=== PATIENT | male | born 1950 | race Caucasian/White ===

== ENCOUNTER 2020-08-07 06:56 | Observation (INO) ==
--- NOTE | 2020-06-30 12:05 | PAT Medication Instructions ---
Medication Instructions Date of Service June 30, 2020 Home Medications omeprazole 20 mg capsule,delayed release 20 mg PO QAM atorvastatin 10 mg PO HS lisinopril 20 mg PO QAM DO NOT take the morning of surgery lisinopril 20 mg PO QAM Take morning of surgery With a small sip of water, OTHERWISE NOTHING TO EAT OR DRINK AFTER MIDNIGHT: omeprazole 20 mg capsule,delayed release 20 mg PO QAM Take evening before surgery atorvastatin 10 mg PO HS Other Notes If you have any questions please call us at [phone] or [phone] or [phone] or [phone]
--- NOTE | 2020-07-05 09:08 | Anesthesiology Consultation ---
Date of Service July 05, 2020 Assessment & Plan (1) Encounter for pre-operative examination: Per assessment on 07/05: Travel screen- Lives in [facility]. Travel to [facility]. No known COVID-19 positive contacts or current COVID-19 related symptoms. Surgeon arranging preop COVID testing. Awaiting results. Chart Review Chart Review: Acceptable Risk for Surgery and Patient seen in Pre Admission Testing Teaching & Discussion Pre-Anesthesia Teaching/Discussion Notes: Instructed NPO after midnight before surgery,except medications with 15 cc of water. Medication instructions provided according to the PAT guidelines. History Surgery Operation Date: 08/07/20 07:30 Proposed Procedures p Right Total Knee Arthroplasty - Kristopher Moore MD Height/Weight Height: 5 ft 10 in Weight: 83 kg Allergies Allergy/AdvReac Type Severity Reaction Status Date / Time No Known Allergies Allergy Verified 06/27/20 15:20 Medications Home Medications Medication Instructions Recorded Confirmed Last Taken omeprazole 20 mg capsule,delayed 20 mg PO QAM 06/05/20 06/27/20 Unknown release atorvastatin 10 mg PO QAM 06/27/20 07/05/20 Unknown lisinopril 20 mg PO HS 06/27/20 07/05/20 Unknown Past Medical History Medical History Bilateral primary osteoarthritis of knee Elbow fracture closed reduction casted () GERD (gastroesophageal reflux disease) controlled Hyperlipemia Hypertension Exercise / Class Metabolic Activity II 4-5 Yardwork/Stairs/Walk up hill Past Surgical History Surgical History Hx of arthroscopy of left knee Hx of arthroscopy of right knee Hx of colonoscopy Past Anesthesia History No Hx of Anesthesia Complications and No Family Hx of Anesthesia Complications History of PONV No Hx of PONV and No Hx of Motion Sickness Social History Smoking Status: Never smoker Do You Dip or Chew Tobacco: No (quit) Hx Alcohol Use: Yes Alcohol type: beer alcohol intake frequency: holidays/special occasions only Hx Substance Use: No Review of Systems Patient denies chest pain, shortness of breath, dyspnea on exertion, fever, ch ills, cough, wheezing, palpitations. Physical Exam Vital Signs VITALS BP 125/75 P 58 TEMP 98.3 SP02 100%RA RESP 16 PHYSICAL Full neck and c-spine range of motion. Full TMJ range of motion. TMD 3 finger breaths Mallampati Score 3 Dentition: missing molars Lungs: clear throughout to auscultation Cardiac: regular rate and rhythm, no murmurs noted Spine: normal Carotid arteries: negative bruit Extremities: no edema Trimmed pacheco Testing Laboratory Results 07/05/20 09:41 07/05/20 09:41 PT 10.3 Seconds (9.0-12.0) 07/05/20 09:41 INR 1.0 (0.9-1.1) 07/05/20 09:41 APTT 25.4 Seconds (21.0-31.0) 07/05/20 09:41 Blood Type A Positive 07/05/20 09:41 Antibody Screen NEGATIVE 07/05/20 09:41 Electrocardiogram Date: 07/05/20 Findings: + SB @ (58) Chest X-Ray Date: 07/05/20 FINDINGS: Cardiomediastinal and hilar silhouettes are within normal limits. No pneumothorax, pleural effusion, airspace consolidation or overt pulmonary edema. Bones of the chest appear grossly intact. Mild spondylitic spurring of the spine. Patient is rotated on the lateral view. IMPRESSION: No acute process.
--- NOTE | 2020-07-05 10:15 | XRay Report ---
XR chest Pre-admission PA/Lat HISTORY: 70 years-old Male pat preoperative exam. No acute chest complaints COMPARISON: None TECHNIQUE: PA and lateral views of the chest FINDINGS: Cardiomediastinal and hilar silhouettes are within normal limits. No pneumothorax, pleural effusion, airspace consolidation or overt pulmonary edema. Bones of the chest appear grossly intact. Mild spond ylitic spurring of the spine. Patient is rotated on the lateral view. IMPRESSION: No acute process. ACT 112: Negative or not required by law. The above report was generated using voice recognition software. It may contain grammatical, syntax o r spelling errors. Electronically signed by: Israel Aiken M.D. 07/05/2020 10:13 AM
[2020-07-05 10:45] LABS: Basophils # (auto) 0.01 K/uL (0-0.2); Basophils % (auto) 0.2 %; Eosinophils % (auto) 2.2 %; Hemoglobin 13.9 g/dL (14.0-18.0); Immature Granulocytes # (auto) 0.01 K/uL (0.00-0.02); Immature Granulocytes % (auto) 0.2 %; Lymphocytes # (auto) 1.42 K/uL (1.2-3.4); Lymphocytes % (auto) 30.7 %; Mean Corpuscular Hemoglobin 31.2 pg (25-34); Mean Corpuscular Hgb Conc 33.9 g/dL (32-36); Mean Corpuscular Volume 91.9 fL (80-100); Mean Platelet Volume 10.3 fL (7.4-10.4); Monocytes # (auto) 0.56 K/uL (0.11-0.59); Monocytes % (auto) 12.1 %; Neutrophils # (auto) 2.53 K/uL (1.4-6.5); Neutrophils % (auto) 54.6 %; Platelet Count 269 K/uL (130-400); RDW Coefficient of Variation 13.7 % (11.5-14.5); RDW Standard Deviation 46.3 fL (36.4-46.3); Red Blood Count 4.46 M/uL (4.7-6.1); White Blood Count 4.63 K/uL (4.8-10.8)
[2020-07-05 10:50] LABS: BUN Creatinine Ratio 15.5 (10-20); Calcium 9.1 mg/dl (8.5-10.1); Creatinine Clr Calc Pharmacy 67.6 ml/min; Est GFR (African American) 84.7; Est GFR (Non-African American) 73.1; Potassium 4.5 mmol/L (3.5-5.1)
[2020-07-05 11:03] LABS: Partial Thromboplastin Time 25.4 Seconds (21.0-31.0); Prothrombin Time 10.3 Seconds (9.0-12.0)
--- NOTE | 2020-07-06 06:11 | Electrocardiogram Report ---
Test Reason : Blood Pressure : / mmHG Vent. Rate : 058 BPM Atrial Rate : 058 BPM P-R Int : 174 ms QRS Dur : 094 ms QT Int : 404 ms P-R-T Axes : 073 084 060 degrees QTc Int : 396 ms Sinus bradycardia Otherwise normal ECG No previous ECGs available Confirmed by Jagjit Gallardo ([id number]) on 07/06/2020 6:10:44 AM Referred By: Kristopher Moore Confirmed By:Jagjit Gallardo
--- NOTE | 2020-08-05 13:36 | History and Physical Report ---
DATE OF ADMISSION: 08/07/2020 CHIEF COMPLAINT: Bilateral knee pain and discomfort, right side greater than left. HISTORY OF PRESENT ILLNESS: The patient is a 70-year-old gentleman who presents for treatment of his knees. He has a long history of bilateral knee pain and discomfort that has gradually gotten worse over the past 10 years. He has had both knees scoped by Dr. Arcos that he thinks was done back in the 1980s. Over the past 10 years, he has developed increased pain and discomfort. He has seen Dr. Holland over in [place], had shots in his knees, which have become less successful over time. Both knees hurt, but the right side is worse than the left. He is unable to get out and tam like he liked to due to the pain. He has difficulty going up and down steps and hills. He limps more as the day goes on. Pain is constant. He would like to have his knees fixed. PAST MEDICAL HISTORY: 1. Elevated cholesterol. 2. Hypertension. PAST SURGICAL HISTORY: 1. Bilateral knee scopes in the 80s. 2. Cataract surgery. ALLERGIES: None. CURRENT MEDICATIONS: 1. Lisinopril. 2. Atorvastatin. 3. Omeprazole. SOCIAL HISTORY: A 70-year-old male. He is . Rare alcohol intake. Does not smoke. FAMILY HISTORY: Noncontributory. REVIEW OF SYSTEMS: Significant for multiple joint aches and pains. No chest pain or shortness of breath. No history of DVT or PE. No bleeding problems. PHYSICAL EXAMINATION GENERAL: Shows a pleasant elderly male. Looks to be in good health. HEENT: Benign. NECK: Supple, no lymphadenopathy. LUNGS: Clear to auscultation. HEART: Has a regular rate and rhythm. ABDOMEN: Soft, nontender, nondistended. EXTREMITIES: Grossly neurovascularly intact except as follows. Examination of both knees reveals the patient walks independently. Examination of the right knee reveals well-healed arthroscopic portal sites. He has got a small knee effusion. He has a varus thrust with weightbearing. Range of motion is 5-125. He does have anterior laxity to drawer testing and Xochitl testing. No varus or valgus instability. Renetta's causes pain. Examination of the knee reveals varus alignment. He has got a varus thrust. A small knee effusion. He is tender over the medial joint line. No instability. Range of motion 5-130. No pain with hip motion. X-RAYS: X-rays of both knees were reviewed. It shows advanced bilateral knee DJD. He has got tricompartment disease in both knees. He has got complete loss of medial joint space. The right side is a bit worse than the left. He has got osteophytes in all 3 compartments. 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 He has multiple other comorbidities, most specifically hypertension and elevated cholesterol. He has failed conservative treatment and would like to proceed with knee replacement. PLAN: We are going to proceed with a right knee replacement. If he does well with this, we will consider doing the left. The risks and benefits of right total knee replacement were explained to the patient including but not limited to DVT, PE, , infection, neurological injury, vascular injury, bleeding problem, pain, limited range of motion, stiffness, failure to relieve symptoms, incomplete relief of symptoms, need for further surgery in future, fracture, leg length inequality, nerve palsy, etc. The patient understands and desires to proceed. Informed consent was obtained. We did talk to him about holding his lisinopril the morning of surgery and he takes omeprazole with a sip of water. He is planning to be discharged home using [facility] home health program.
[~2020-08-07 06:56] MED LIST: ACETAMINOPHEN 500 MG TAB PO SCH; BUPIVACAINE 0.25% 30 ML VIAL ONE; BUPIVACAINE 0.5 % 5 MG/1 ML PF 10ML VIAL ONE; BUPIVACAINE LIPOSOME/PF 266 MG, BUPIVACAINE/EPINEPHRINE 50 ML, SODIUM CHLORIDE 0.9% 30 ... INFIL SCH; EPINEPHrine INJ 1 MG/ML AMP ONE; FAMOTIDINE 20 MG TAB PO SCH; GABAPENTIN 300 MG CAP PO SCH; LR 500ML BOLUS, THEN 15ML/HR IV SCH; LR 60ML/HR IV SCH; METOCLOPRAMIDE HCL 10 MG TABLET PO SCH; TRANEXAMIC ACID 1,000 MG **IV Intra-op IV SCH; ceFAZolin 2000MG 2,000 MG/15 ML SYR IV SCH
--- NOTE | 2020-08-07 07:00 | History & Physical Bridge Note ---
Date of Service August 07, 2020 History & Physical Bridge Note I have examined the patient, reviewed the History & Physical and in the interval since the performance of the History & Physical I have noted the following changes of clinical significance: no changes noted
[2020-08-07] MEDS ORDERED: fentaNYL citrate 100 MCG/2 ML VIAL ONE (08:35)
[2020-08-07] MEDS ORDERED: MIDAZOLAM HCL 1 MG/ML 2ML VIAL ONE (08:35)
[2020-08-07] MEDS ORDERED: ePHEDrine sulfate 50 MG/ML AMP IV PRN (08:41)
[2020-08-07] MEDS ORDERED: HYDROmorphone INJ 2 MG/ML SYR/VIAL IV PRN (08:41)
[2020-08-07] MEDS ORDERED: ONDANSETRON INJ 2 MG/ML 2 ML VIAL IV PRN ×2 (08:41→13:25)
[2020-08-07] MEDS ORDERED: ATROPINE SULFATE 0.1 MG/ML 10ML SYR IV PRN (08:41)
[2020-08-07] MEDS ORDERED: fentaNYL citrate 100 MCG/2 ML VIAL IV PRN (08:41)
[2020-08-07] MEDS ORDERED: EPINEPHrine INJ 1 MG/ML AMP ONE (09:36)
[2020-08-07] MEDS ORDERED: BUPIVACAINE LIPOSOME 1.3% 266 MG/20 ML VIAL ONE (09:37)
[2020-08-07] MEDS ORDERED: BUPIVACAINE 0.25% 30 ML VIAL ONE (09:37)
[2020-08-07] MEDS ORDERED: BACITRACIN INJ 50,000 UNIT VIAL ONE (09:37)
[2020-08-07] MEDS ORDERED: SODIUM CHLORIDE 0.9% PF 50 ML VIAL ONE (09:37)
[2020-08-07] MEDS ORDERED: GLYCOPYRROLATE 0.2 MG/ML VIAL ONE (10:53)
[2020-08-07] MEDS ORDERED: LIDOCAINE HCL 2% 2 ML VIAL/AMP(20MG/ML) INFIL ONE (10:53)
[2020-08-07] MEDS ORDERED: PROPOFOL IV EMULSION 10 MG/ML 20 ML VIAL IV ONE (10:53)
[2020-08-07] MEDS ORDERED: ePHEDrine sulfate 50 MG/ML SYR ONE (10:53)
--- NOTE | 2020-08-07 11:50 | Operative Report ---
Post Operative Report Pre & Post Diagnosis Operation Date: 08/07/20 09:05 Pre-Op Diagnosis: Right Knee Degenerative Joint Disease Post-Op Diagnosis: Right Knee Degenerative Joint Disease I identified the patient and participated in the time-out.: Yes Procedure Operation Date: 08/07/20 09:05 Actual Procedures p Right Total Knee Arthroplasty(Right) - Kristopher Moore MD Surgeon Kristopher Moore MD Byproducts Extractor JANKI Matt Estimated Blood Loss 50 Findings Consistent with Post-Op Diagnosis Operative findings were advanced right knee tricompartment DJD. He had extensive grade 4 [id number] disease in all 3 compartments most severe in the medial side. He had a chronic ACL deficiency. Large knee joint effusion. Fluids 600 cc Specimens Right knee sent for pathology. Drains None. Anesthesia Type Spinal MAC Complications none Disposition Accompanied Patient To Recovery: No Disposition: Recovery Room Indications Patient is a 70-year-old fairly active gentleman said a long history of bilateral knee pain discomfort. He had his right knee scoped about 30 or 40 years ago. Over the past 10 years he developed increased pain discomfort and deformity to his knee. He failed conservative care and elected proceed with surgical treatment. Description of Procedure Operative implants consisted of: 1. Biomet Vanguard size 70 right posterior stabilized femoral component. 2. Biomet size 79 tibial tray. 3. 10 mm posterior stabilized polyethylene insert. 4. 34 x 8 and half all polypatella. The patient was taken to the operating identified placed on the operating table supine position but all contact areas were properly padded. IV antibiotics tried by anesthesia team. A spinal anesthetic and abductor canal block had provided holding area. Gautam catheter was placed in sterile fashion. Right thigh turn was then placed in the right lower extremities and prepped and draped in usual sterile fashion. Right leg was elevated exsanguinated with use of an Esmarch and turns placed at 300 mmHg. An anterior approach of the right knee was then performed to longitudinal incision centered over the patella. Sharp dissection was carried through subcutaneous tissue down to the extensor mechanism. A medial parapatellar arthrotomy incision was made. Some subperiosteal dissection was carried out medially. The fat pad was resected from each patella tendon. Lateral patellofemoral ligament was released. Patella subluxated laterally and the knee was flexed. The osteophytes were taken off distal femur. The ACL and PCL were then released in the distal femur and the tibia subluxated anteriorly. The external tibial alignment jig was then placed in the interface the tibia and adjusted 16 mm medially. Proximal tibial cut was made essentially flush with the most deficient aspect of the posterior medial tibial plateau where there was quite a bit of wear. The tibia sized to a size 79. Some osteophytes taken off medial and posterior medially. Attention drawn the femur. The distal femur turned the sharp drop with intramedullary canal was suction. A right 6 degree valgus cutting guide was placed. This femoral cutting block was pinned in place. The distal femoral cut was made to take an additional 3 mm bone off distal femur. The femur was then sized to a size 70. The AP cutting block was placed parallel to the epicondylar axis which was 3 degrees of external rotation. Anterior cut, anterior chamfer, posterior cut, posterior chamfer cuts were made. The box cutting guide was placed in just slight lateral box cut was made to the knee was flexed. The remnants of the medial lateral menisci were excised. The osteophytes were taken off the posterior aspect of the femur. A trial femoral component was placed. The tibial tray was pinned in maximum external rotation and the drill and stem punch were used to create the defect in the proximal tibia for the tibial tray. The knee was then trialed and the 10 mm insert fit most appropriately. Attention drawn the patella. The patella was cleaned of all soft tissue. Patella thickness measured 23 mm in thickness was cut down to 13. Sized to a size 34 patella. The locals were drilled for 34 patella. The lateral osteophyte was removed. Patella button was placed. Knee was taken through range of motion and the patella tracked nicely with no thumbs test. Attention drawn to placing the permanent components. All trial components were removed. Bone plug was placed in the distal femur limit blood loss put a double batch of Palacos G cement was mixed. A Biomet Vanguard size 70 right posterior stabilized femoral component, size 79 tibial tray, 10 mm posterior stabilized polyethylene insert, and a 34 x 8 and half all polypatella was then cemented in place. The knee was brought out in full extension total cement hardened. Final cement check was then performed. Pericapsular tissues were injected with total of 100 cc of combination of 20 of Exparel, 30 cc normal saline, 50 cc of quarter percent Marcaine with epinephrine. Patient did receive 1 g tranexamic acid. The tourniquet was then let down for final turn time 59 minutes. Hemostasis assured use electrocautery. Wound was once again irrigated. Extensor mechanism closed with combination 1 PDS suture #1 Vicryl suture in [id number] fashion. Extensor mechanism checked found to be intact with subcutaneous tissue then closed 2 Dexon suture in buried fashion skin was closed skin shayna. Leg was then cleaned dried a sterile dressing was Xeroform, 4 x 4's, sterile cast padding and an Yohannes bandage were applied. Patient then transferred to the recovery room in [facility]. Patient tolerated procedure well and there were no complications. Jeffrey Matt, my physician physician assistant psychiatry, was present for the entire procedure. His assistance was essential and required for appropriate patient positioning, prepping and draping, surgical exposure, performing the technical details of the operation, placement the implants, closure of the wound, and placement of the sterile bandage. I attest to the content of the Intraoperative Record and any orders documented therein. Any exceptions are noted below.
--- NOTE | 2020-08-07 12:14 | XRay Report ---
RIGHT KNEE 2 VIEWS History: Right total knee arthroplasty. Degenerative arthritis. Postop. FINDINGS: The patient is status post a right total knee arthroplasty. The hardware is intact. No frac ture or dislocation. Skin shayna are in place. IMPRESSION: Right total knee arthroplasty. No evidence for hardware complication. ACT 112: Negative or not required by law. Electronically signed by: Jeff Gibson M.D. 08/07/2020 12:13 PM
--- NOTE | 2020-08-07 12:14 | Anesthesiology Progress Note ---
Date of Service August 07, 2020 Anesthesia Post Procedure Vital Signs Vital Signs: Temp Pulse Pulse Resp BP BP Pulse Ox 08/07/20 12:10 52 L 15 102/60 100 08/07/20 12:00 56 L 12 97/57 L 100 08/07/20 11:50 54 L 15 97/59 L 100 08/07/20 11:45 36.0 C L 62 16 99/60 L 98 08/07/20 07:32 36.8 C 60 18 91/77 L 100 Pain Intensity Right Knee: Pain Intensity: 3 Transfer of Care Handoff Completed per policy Notes Mental Status: alert / awake / arousable and participated in evaluation Patient Amnestic to Procedure: Yes Nausea / Vomiting: adequately controlled Pain: adequately controlled Airway Patency, RR, SpO2: stable & adequate BP & HR: stable & adequate Hydration State: stable & adequate Anesthetic Complications: no major complications apparent and Pt Satisfied with anesthetic care
--- NOTE | 2020-08-07 12:55 | Anesthesiology Progress Note ---
Date of Service August 07, 2020 Anesthesia Post Procedure Vital Signs Vital Signs: Temp Pulse Pulse Resp BP BP Pulse Ox 08/07/20 12:50 36.3 C L 53 L 16 101/63 100 08/07/20 12:40 60 16 98/62 L 98 08/07/20 12:30 54 L 18 94/64 L 100 08/07/20 12:20 49 L 12 96/61 L 100 08/07/20 12:10 52 L 15 102/60 100 08/07/20 12:00 56 L 12 97/57 L 100 08/07/20 11:50 54 L 15 97/59 L 100 08/07/20 11:45 36.0 C L 62 16 99/60 L 98 08/07/20 07:32 36.8 C 60 18 91/77 L 100 Pain Intensity Right Knee: Pain Intensity: 3 Transfer of Care Handoff Completed per policy Notes Mental Status: alert / awake / arousable Patient Amnestic to Procedure: Yes Nausea / Vomiting: adequately controlled Pain: adequately controlled Airway Patency, RR, SpO2: stable & adequate BP & HR: stable & adequate Hydration State: stable & adequate Neuraxial Anesthesia: was administered and sensory block is resolving Anesthetic Complications: no major complications apparent
[2020-08-07] MEDS ORDERED: NALOXONE HCL 0.4 MG/1 ML VIAL/CARP IV PRN (13:25)
[2020-08-07] MEDS ORDERED: METOCLOPRAMIDE HCL INJ 5 MG/ML 2 ML VIAL IV PRN (13:25)
[2020-08-07] MEDS ORDERED: ALUMINUM/MAGNESIUM SUSP 30 ML UDC PO PRN (13:25)
[2020-08-07] MEDS ORDERED: TAMSULOSIN HCL 0.4 MG CAP PO PRN (13:25)
[2020-08-07] MEDS ORDERED: HYDROmorphone INJ 0.5 MG/0.5 ML SYR IV PRN (13:25)
[2020-08-07] MEDS ORDERED: bisacodyL 10 MG SUPP PR PRN (13:25)
[2020-08-07] MEDS ORDERED: MAGNESIUM HYDROXIDE SUSP 30 ML UDC PO PRN (13:25)
[2020-08-07] MEDS ORDERED: SODIUM CHLORIDE 0.9% 1000ML 1,000 ML IV SCH (14:00)
[2020-08-07] MEDS: KETOROLAC TROMETHAMINE 15 MG/ML VIAL IV SCH ×2 (14:17→18:26)
[2020-08-07] MEDS: ACETAMINOPHEN 500 MG TAB PO SCH ×2 (14:17→21:12)
--- NOTE | 2020-08-07 15:08 | Progress Notes ---
DATE: 08/07/2020 SUBJECTIVE: A 70-year-old gentleman postop from right knee replacement. He is doing well. Does not have any feeling yet in his legs. No pain. No chest pain or shortness of breath. Not feeling dizzy or lightheaded. OBJECTIVE: VITAL SIGNS: Temperature 36.5. Vital signs are stable. GENERAL: Shows a pleasant, middle-aged male. He is sitting up in bed and eating lunch. He is talking to his . LUNGS: Clear to auscultation. HEART: Regular rate and rhythm. ABDOMEN: Soft, nontender, nondistended. EXTREMITIES: Grossly neurovascularly intact except as follows: Examination of the right leg reveals the dressing to be clean, dry and intact. Leg is well aligned. He has got pink toes with brisk refill. No significant sensory or motor function yet. X-RAYS: X-rays of the right knee from recovery room are reviewed. It shows a right cemented posterior stabilized total knee arthroplasty. Components looked to be in good position. No signs of problems. ASSESSMENT: A 70-year-old gentleman postoperative from a right knee replacement, doing well. Spinal is still in effect. PLAN: 1. DVT prophylaxis including thigh-high TEDs, SCDs, and aspirin twice a day. 2. PT/OT. Weight bear as tolerated. Right total knee protocol. 3. Pain control, doing okay with current pain regimen. 4. IV antibiotics x24 hours. 5. Disposition: Plan to discharge to home with some home health once adequately recovered and medically stable.
[2020-08-07] MEDS: ceFAZolin 1000MG 1,000 MG/7.5 ML SYR IV SCH (16:56)
[2020-08-07] MEDS: FERROUS GLUCONATE 324 MG TAB PO SCH (17:13)
[2020-08-07] MEDS: ASCORBIC ACID 500 MG TAB PO SCH (17:14)
[2020-08-07] MEDS ORDERED: TRANEXAMIC ACID / 0.7% NACL 1,000 MG/100 ML BAG IV SCH (17:43)
[2020-08-07] MEDS: traMADol HCL 50 MG TABLET PO PRN (17:57)
[2020-08-07] MEDS: DOCUSATE SODIUM 100 MG CAP PO SCH (20:02)
[2020-08-07] MEDS: ASPIRIN 81 MG ECTAB PO SCH (20:02)
[2020-08-07] MEDS ORDERED: lisinopril 20 MG TAB PO SCH (21:00)
[2020-08-07] MEDS ORDERED: SENNA 8.6 MG TAB PO SCH (21:00)
[2020-08-08] MEDS: KETOROLAC TROMETHAMINE 15 MG/ML VIAL IV SCH ×3 (00:39→11:05)
[2020-08-08] MEDS: ceFAZolin 1000MG 1,000 MG/7.5 ML SYR IV SCH (01:20)
[2020-08-08] MEDS: ACETAMINOPHEN 500 MG TAB PO SCH ×2 (05:21→13:30)
[2020-08-08 06:16] LABS: Hematocrit (blood only) 34.6 % (42-52); Hemoglobin 11.9 g/dL (14.0-18.0); Mean Corpuscular Hgb Conc 34.4 g/dL (32-36); Mean Corpuscular Volume 90.1 fL (80-100); Mean Platelet Volume 9.6 fL (7.4-10.4); Platelet Count 217 K/uL (130-400); RDW Coefficient of Variation 13.7 % (11.5-14.5); RDW Standard Deviation 44.9 fL (36.4-46.3); Red Blood Count 3.84 M/uL (4.7-6.1); White Blood Count 7.08 K/uL (4.8-10.8)
[2020-08-08 06:49] LABS: BUN Creatinine Ratio 17.1 (10-20); Calcium 8.4 mg/dl (8.5-10.1); Creatinine Clr Calc Pharmacy 71.1 ml/min; Est GFR (Non-African American) 77.7; Potassium 4.5 mmol/L (3.5-5.1)
[2020-08-08] MEDS ORDERED: dexAMETHasone 4 MG TAB PO SCH (08:00)
[2020-08-08] MEDS: DOCUSATE SODIUM 100 MG CAP PO SCH (08:20)
[2020-08-08] MEDS: FERROUS GLUCONATE 324 MG TAB PO SCH (08:20)
[2020-08-08] MEDS: ASCORBIC ACID 500 MG TAB PO SCH (08:21)
[2020-08-08] MEDS: ASPIRIN 81 MG ECTAB PO SCH (08:21)
[2020-08-08] MEDS ORDERED: MULTIVITAMIN TAB PO SCH (09:00)
[2020-08-08] MEDS ORDERED: ATORVASTATIN 10 MG TAB PO SCH (09:00)
[2020-08-08] MEDS ORDERED: PANTOprazole 40 MG TAB PO SCH (09:00)
[2020-08-08] MEDS: traMADol HCL 50 MG TABLET PO PRN ×2 (09:27→14:50)
--- NOTE | 2020-08-08 13:35 | Progress Notes ---
DATE: 08/08/2020 SUBJECTIVE: A 70-year-old gentleman postoperative day 1 from right knee replacement. He is doing pretty well. Pain has been reasonably well controlled. The therapy has gone pretty well. No chest pain or shortness of breath. Not feeling dizzy or lightheaded. OBJECTIVE: VITAL SIGNS: Temperature 36.5. Vital signs are stable. GENERAL: Shows a pleasant, middle-aged male. He is walking in the hallways with a walker when I visited him this morning. EXTREMITIES: Examination of the right knee reveals the leg to be well aligned. Dressing is clean, dry, and intact. He can dorsiflex and plantarflex his foot appropriately. He is neurologically intact. LABORATORY DATA: Hemoglobin 11.9. Hematocrit 34.6. Electrolytes are stable. ASSESSMENT: A 70-year-old gentleman postoperative day 1 from right knee replacement, doing pretty well. His pain is controlled. Therapy went well. He is neurologically intact. PLAN: 1. DVT prophylaxis including thigh-high TEDs, SCDs, and aspirin twice a day. 2. PT/OT. Weight bear as tolerated. Right total knee protocol. 3. Pain control, doing pretty well with current pain regimen. 4. Disposition: Plan to discharge to home with some home health once adequately recovered, doing okay in therapy and pain controlled with p.o. pain meds.
[2020-08-08] MEDS ORDERED: Nursing to Pharmacy Communication SCH (15:00)
--- NOTE | 2020-08-12 07:55 | Discharge Summary ---
Date of Service August 12, 2020 Discharge Data Procedures Performed Operation Date: 08/07/20 09:05 Actual Procedures p Right Total Knee Arthroplasty(Right) - Kristopher Moore MD Hospital Course (1) Status post total right knee replacement: This patient is a 70 year old male admitted on 08/07/20 and underwent total knee arthroplasty. He tolerated the procedure well and there were no complications. Transferred to the PACU post op and later to the orthopedic floor for further care. He was given ancef for antibiotic prophylaxis. He was also given PONCHO stockings, SCDs, and aspirin for DVT prophylaxis. Hemoglobin, hematocrit, and vital signs were monitored during his hospital stay and remained stable. Did not require any blood transfusions. There were no complications duri ng his hospital stay. By post op day #1 the patient was tolerating a regular diet, pain was reasonably controlled with oral pain medicine, and he was participating in physical therapy. On post op day #1 the patient was discharged home and set up with home health care. He was given printed discharge instructions including prescriptions for extra strength tylenol, aspirin, and tramadol. Continue physical therapy, weight bearing as tolerated. Continue PONCHO stockings. Follow up approximately 2 weeks post op or sooner if there are problems or concerns. Coding Level of Care Code None Diagnoses Status post total right knee replacement Z96.651
== END 2020-08-08 15:33 | disposition home health service (06) ==
LOC: ASU 06:56 → 3E 06:56